=== PATIENT | female | born 1970 | race Caucasian/White ===

== ENCOUNTER → 2018-09-03 | Outpatient (CLI) | payer OTHER ==
[~2018-09-03] MED LIST: GADOBUTROL 10 MMOL/10 ML VIAL ONE
== END | disposition home or self-care (01) ==
LOC: CFH 13:43
PROVIDERS: ATTEND Surgery
DX: C50.412 Malignant neoplasm of upper-outer quadrant of left female breast (principal)
CPT/HCPCS: A9585; C8908; C8937

== ENCOUNTER 2018-09-09 11:48 | Outpatient (CLI) | payer OTHER ==
[2018-09-09] MEDS ORDERED: LIDOCAINE 1%-EPI 1:100K, 20ML ONE (12:15)
[2018-09-09] MEDS ORDERED: LIDOCAINE 1%, 20ML ONE (12:15)
[2018-09-09] MEDS ORDERED: SODIUM BICARBONATE 4.2%, 5ML ONE (12:15)
== END 2018-09-09 23:59 | disposition home or self-care (01) ==
LOC: CFH 11:48
PROVIDERS: ATTEND Surgery
DX: C50.412 Malignant neoplasm of upper-outer quadrant of left female breast (principal); Z17.0 Estrogen receptor positive status [ER+]
CPT/HCPCS: 19083; 77065; 88305; 88341; 88342; 88360; J3490; 19285

== ENCOUNTER 2018-10-05 13:31 | Day surgery (SDC) | payer OTHER ==
[~2018-10-05] VITALS: Ht 160 cm; Wt 59.1 kg
[2018-10-05] MEDS ORDERED: ISOSULFAN BLUE 10 MG/ML, 5ML IV ONE (13:58)
[2018-10-05] MEDS ORDERED: BUPIVACAINE/PF-EPI 0.5% 1:200K ONE (13:58)
[2018-10-05 15:34] VITALS: BP 105/71
[2018-10-05] MEDS ORDERED: no meds (15:49)
[2018-10-05] MEDS ORDERED: GABAPENTIN 300 MG CAPSULE PO ONE (16:00)
[2018-10-05] MEDS ORDERED: SCOPOLAMINE PATCH, 1.5MG PATCH.TD72 TD ONE (16:00)
[2018-10-05] MEDS ORDERED: ACETAMINOPHEN 500 MG TABLET PO ONE (16:00)
[2018-10-05] MEDS ORDERED: LACTATED RINGERS 1,000 ML IV SCH (16:00)
[2018-10-05] MEDS ORDERED: ONDANSETRON ODT 8 MG PO ONE (16:00)
[2018-10-05] MEDS ORDERED: SODIUM BICARBONATE 4.2%, 5ML ONE (16:07)
[2018-10-05] MEDS ORDERED: LIDOCAINE 1%-EPI 1:100K, 20ML ONE (16:07)
[2018-10-05] MEDS ORDERED: LIDOCAINE 1%, 20ML ONE (16:07)
[2018-10-05] MEDS ORDERED: MIDAZOLAM 1 MG/ML, 2ML ONE (16:45)
[2018-10-05] MEDS ORDERED: FENTANYL PF 250 MCG/5ML ONE (16:57)
[2018-10-05] MEDS ORDERED: DEXAMETHASONE 4 MG/ML, 1ML ONE (17:10)
[2018-10-05] MEDS ORDERED: ROCURONIUM 10 MG/ML,10ML ONE (17:10)
[2018-10-05] MEDS ORDERED: ONDANSETRON 2MG/ML, 2ML ONE (17:10)
[2018-10-05] MEDS ORDERED: SUGAMMADEX 200 MG/2 ML IVPush ONE (17:10)
[2018-10-05] MEDS ORDERED: CEFAZOLIN 1,000 MG ONE (17:10)
[2018-10-05] MEDS ORDERED: PROPOFOL 10 MG/ML, 20ML ONE (17:10)
[2018-10-05] MEDS ORDERED: ALBUTEROL SULFATE 2.5 MG/3 ML NPPB PRN (17:30)
[2018-10-05] MEDS ORDERED: HALOPERIDOL 5 MG/ML IV PRN (17:30)
[2018-10-05] MEDS ORDERED: PROMETHAZINE 25 MG/ML, 1ML IV PRN (17:30)
[2018-10-05] MEDS ORDERED: hydrALAzine 20 MG/ML, 1ML IV PRN (17:30)
[2018-10-05] MEDS ORDERED: HYDROmorphone 2 MG/ML, 1ML IVPush PRN (17:30)
[2018-10-05] MEDS ORDERED: MEPERIDINE/PF 25MG/0.5ML IVPush PRN (17:30)
[2018-10-05] MEDS ORDERED: OXYcodone 5 MG/5 ML ORAL.SOL UDC PO PRN (17:30)
[2018-10-05] MEDS ORDERED: OXYcodone 5 MG/5 ML ORAL.SOL UDC ONE (19:30)
[2018-10-05] MEDS ORDERED: FENTANYL PF 100 MCG/2ML ONE (19:30)
[2018-10-05] MEDS: FENTANYL PF 100 MCG/2ML IV PRN ×2 (19:30→19:53)
[2018-10-05] MEDS ORDERED: MEPERIDINE/PF 25MG/ML,1ML ONE (19:34)
[2018-10-05] MEDS ORDERED: HYDROmorphone 2 MG/ML, 1ML ONE (19:55)
== END 2018-10-05 21:52 | disposition home or self-care (01) ==
LOC: SDC 13:31 → EDSTATUS 17:30 → 4NOR 20:30 → SDC 21:52
PROVIDERS: ATTEND Surgery
DX: C50.412 Malignant neoplasm of upper-outer quadrant of left female breast (principal); N65.1 Disproportion of reconstructed breast; F17.210 Nicotine dependence, cigarettes, uncomplicated; Z17.0 Estrogen receptor positive status [ER+]; Z79.1 Long term (current) use of non-steroidal anti-inflammatories (NSAID); Z79.899 Other long term (current) drug therapy
CPT/HCPCS: 19281; 19301; 19318; 19380; 38525; 38792; 76098; 88305; 88307; 88329; 88333; A9541; C1729; J0690; J1100; J1170; J2175; J2405; J2704; J3010; J3490; J7120; Q0162; G0378

== ENCOUNTER 2019-04-27 07:54 | Outpatient (CLI) | payer OTHER ==
[~2019-04-27 07:54] MED LIST changes: -GADOBUTROL 10 MMOL/10 ML VIAL ONE; +no meds
== END 2019-04-27 23:59 | disposition home or self-care (01) ==
LOC: ROC 07:54
PROVIDERS: ATTEND Radiology Radiation Oncology
DX: C50.412 Malignant neoplasm of upper-outer quadrant of left female breast (principal); R53.83 Other fatigue
CPT/HCPCS: 99213; G0463

== ENCOUNTER → 2019-09-05 | Outpatient (CLI) | payer OTHER | END | disposition home or self-care (01) | LOC: CFH 13:48 | PROVIDERS: ATTEND Radiology Radiation Oncology | DX: Z12.31 Encounter for screening mammogram for malignant neoplasm of breast (principal); C50.412 Malignant neoplasm of upper-outer quadrant of left female breast | CPT/HCPCS: 76641; 77063; 77067 ==

== ENCOUNTER → 2020-01-11 | Outpatient (CLI) | payer OTHER | END | disposition home or self-care (01) | LOC: ROC 09:12 | PROVIDERS: ATTEND Radiology Radiation Oncology | DX: C50.412 Malignant neoplasm of upper-outer quadrant of left female breast (principal) | CPT/HCPCS: 99212; G0463 ==

== ENCOUNTER 2020-07-11 07:50 | Outpatient (CLI) | payer BC, OTHER | END 2020-07-11 23:59 | disposition home or self-care (01) | LOC: ROC 07:50 | PROVIDERS: ATTEND Radiology Radiation Oncology | DX: Z08 Encounter for follow-up examination after completed treatment for malignant neoplasm (principal); Z85.3 Personal history of malignant neoplasm of breast | CPT/HCPCS: 99213; G0463 ==

== ENCOUNTER → 2020-09-18 | Outpatient (CLI) | payer BC, OTHER | END | disposition home or self-care (01) | LOC: CFH 07:55 | PROVIDERS: ATTEND Radiology Radiation Oncology | DX: Z12.31 Encounter for screening mammogram for malignant neoplasm of breast (principal); C50.412 Malignant neoplasm of upper-outer quadrant of left female breast | CPT/HCPCS: 76641; 77063; 77067 ==

== ENCOUNTER → 2020-10-30 | Outpatient (CLI) | payer BC, OTHER | END | disposition home or self-care (01) | LOC: CFH 08:30 | PROVIDERS: ATTEND Obstetrics & Gynecology | DX: Z12.2 Encounter for screening for malignant neoplasm of respiratory organs (principal); C50.812 Malignant neoplasm of overlapping sites of left female breast; J84.10 Pulmonary fibrosis, unspecified; Z87.891 Personal history of nicotine dependence | CPT/HCPCS: 71271 ==

== ENCOUNTER → 2020-11-01 | Outpatient (CLI) | payer BC, OTHER | END | disposition home or self-care (01) | LOC: RAD 08:10 | PROVIDERS: ATTEND Internal Medicine Hematology & Oncology | DX: C50.812 Malignant neoplasm of overlapping sites of left female breast (principal); R19.00 Intra-abdominal and pelvic swelling, mass and lump, unspecified site; Z72.0 Tobacco use | CPT/HCPCS: 76705 ==